=== PATIENT | female | born 1950 | race Caucasian/White ===

== ENCOUNTER 2023-09-10 19:47 | Emergency (ER) | payer MEDICARE ==
[~2023-09-10] VITALS: Ht 162.6 cm; Wt 74.2 kg
[2023-09-10] MEDS ORDERED: LANTUS100 UNITS/ SUB-Q (20:03)
[2023-09-10] MEDS ORDERED: ASPIRIN81 MG PO (20:03)
[2023-09-10] MEDS ORDERED: TRAZODONE HCL50 MG PO (20:03)
[2023-09-10 20:09] LABS: BASOPHILS 0.9 % (0-2); EOSINOPHILS 0.8 % (0-6); HEMATOCRIT 42.5 % (35.0-50.0); HEMOGLOBIN 14.5 g/dL (12.0-18.0); LYMPHOCYTES 27.5 % (24-44); MCH 29.9 (27-36); MCHC 34.2 g/dl (30-36); MCV 87.3 fl (81-99); MONOCYTES 5.8 % (0-12); PLATELET COUNT 295 K/uL (140-440); RBC 4.87 M/ul (4.3-5.7); RDW 13.3 (10.5-15.0)
[2023-09-10 20:19] LABS: INR 1.05 (0.80-1.30); PROTIME 13.3 Sec (11.2-14.2)
[2023-09-10 20:21] LABS: PARTIAL THROMBOPLASTIN TIME 22.8 Sec (22.9-41.3)
[2023-09-10 20:23] LABS: ALBUMIN 3.5 g/dL (3.4-5.0); ALBUMIN/GLOBULIN RATIO 0.95 (1.1-2.4); ANION GAP 17.7 (7-21); BILIRUBIN, TOTAL 0.5 ng/dL (0.2-1.0); BUN/CREATININE RATIO 9.34 (6.0-28.6); CALCIUM 9.1 mg/dL (8.5-10.1); CREATININE, SERUM 1.07 mg/dL (0.55-1.02); POTASSIUM 3.7 mmol/L (3.5-5.1); PROTEIN, TOTAL 7.2 g/dL (6.4-8.2)
[2023-09-10 21:08] LABS: BILIRUBIN, URINE NEGATIVE (negative); BLOOD/HGB, URINE TRACE-I (Negative); KETONE, URINE SMALL (Negative); LEUK ESTERASE, URINE NEGATIVE (negative); NITRITE, URINE POSITIVE (negative)
[2023-09-10 21:15] LABS: BACTERIA, URINE 1+ /hpf (negative); EPITHELIAL CELLS, URINE SQUAMOUS 1+ /lpf (0-1+); REFLEX CULTURE, URINE Yes (No)
[2023-09-10 21:21] LABS: BARBITURATES, URINE NEGATIVE (NEGATIVE); BENZODIAZEPINE, URINE NEGATIVE (NEGATIVE); BUPRENORPHINE, URINE NEGATIVE (NEGATIVE); CANNABINOID, URINE NEGATIVE (NEGATIVE); COCAINE, URINE NEGATIVE (NEGATIVE); ECSTASY, URINE NEGATIVE (NEGATIVE); FENTANYL, URINE NEGATIVE (NEGATIVE); METHADONE, URINE NEGATIVE (NEGATIVE); OPIATES, URINE NEGATIVE (NEGATIVE); OXYCODONE, URINE NEGATIVE (NEGATIVE); PHENCYCLIDINE, URINE NEGATIVE (NEGATIVE)
[2023-09-10 21:30] LABS: AMPHETAMINES, URINE NEGATIVE (NEGATIVE)
[2023-09-10 22:55] VITALS: BP 137/67
--- NOTE | 2023-09-11 23:17 | EKG ---
[facility] [address] [facility] [place] [address] Signed Normal sinus rhythm Left axis deviation Low voltage QRS Abnormal ECG No previous ECGs available Confirmed by Leo Isidro MD () on 09/11/2023 11:16:51 PM Electronically Signed By: LEO ISIDRO MD 09/11/23 2317 PATIENT NAME: JONATHON HOLLIDAY Electrocardiogram DATE OF : 48 PHYSICIAN: LEO ISIDRO MD REPORT #: [id number] REPORT IS CONFIDENTIAL AND NOT TO BE RELEASED WITHOUT AUTHORIZATION
== END 2023-09-10 22:55 | disposition home or self-care (01) ==
LOC: ED 19:47
PROVIDERS: Emergency Medicine
DX: R45.1 Restlessness and agitation (principal); I66.02 Occlusion and stenosis of left middle cerebral artery; I66.23 Occlusion and stenosis of bilateral posterior cerebral arteries; I66.8 Occlusion and stenosis of other cerebral arteries; D72.829 Elevated white blood cell count, unspecified; Z88.5 Allergy status to narcotic agent; Z79.82 Long term (current) use of aspirin; Z79.4 Long term (current) use of insulin
CPT/HCPCS: 36415; 51701; 70450; 70496; 70498; 71045; 80053; 80307; 81001; 85025; 85610; 85730; 87088; 93005; 93010; 99285-25; A9270; G0480; J2405; Q9967